=== PATIENT | male | born 1955 | race Caucasian/White ===

== ENCOUNTER 2021-04-27 11:22 | Emergency (ER) | payer MEDICARE, OTHER ==
[~2021-04-27] VITALS: Ht 182.9 cm; Wt 104.3 kg
[2021-04-27] MEDS ORDERED: CEFDINIR300 MG PO (11:38)
[2021-04-27] MEDS ORDERED: LORATADINE10 MG PO (11:38)
[2021-04-27] MEDS ORDERED: TESSALON PERLE100 MG PO (11:38)
== END 2021-04-27 11:50 | disposition home or self-care (01) ==
LOC: FSED 11:30
DX: R05 Cough (principal); J40 Bronchitis, not specified as acute or chronic; J06.9 Acute upper respiratory infection, unspecified; I10 Essential (primary) hypertension
CPT/HCPCS: 99282